=== PATIENT | female | born 1985 | race Caucasian/White ===

== ENCOUNTER 2018-11-08 15:17 | Emergency (ER) | payer OTHER ==
[~2018-11-08] VITALS: Ht 157.5 cm; Wt 90.7 kg
[2018-11-08 15:29] VITALS: BP 113/70
--- NOTE | 2018-11-08 16:02 | NUR ---
33 Y/O FEMALE C/O PALPITATIONS AND DIZZINESS X 1 DAY. PT STATES SHE GETS DIZZY BUT THEN SITS DOWN AND THAT HELPS RELIEVE IT. DENIES MEDICATION USE. HX: DENIES RX: DENIES
[2018-11-08 17:12] VITALS: BP 110/59
--- NOTE | 2018-11-08 17:12 | NUR ---
Patient discharged with v/s stable. Written and verbal after care instructions given and explained. Patient verbalized understanding. Ambulatory with steady gait. All questions addressed prior to discharge. Advised to follow up with PMD.
== END 2018-11-08 17:12 | disposition home or self-care (01) ==
LOC: MED 15:17
DX: R00.2 Palpitations (principal); R42 Dizziness and giddiness; Z88.0 Allergy status to penicillin
CPT/HCPCS: 81002; 81025; 93005; 99283

== ENCOUNTER 2021-06-28 14:45 | Emergency (ER) | payer OTHER ==
[~2021-06-28] VITALS: Ht 157.5 cm; Wt 79.4 kg
[2021-06-28 14:49] VITALS: BP 135/80
--- NOTE | 2021-06-28 15:07 | NUR ---
35 Y/O FEMALE C/O CHEST PAIN XTODAY. STATES SHARP SUDDEN CHEST PAIN RADIATING TO BACK AFTER 1 EPISODE OF NAUSEA AND VOMITING. 10/09 PAIN IN TRIAGE, NOW 08/09. TOOK IBUPROFEN WITH SOME RELIEF. NO C/O OF N/V AT THIS TIME. MEDHX: DENIES ALLERGIES: PENICILLIN
--- NOTE | 2021-06-28 15:32 | NUR ---
DR CONN AT BEDSIDE FOR MSE
--- NOTE | 2021-06-28 15:43 | NUR ---
PT TAKEN TO XR BY XR TECH VIA WC
--- NOTE | 2021-06-28 15:51 | NUR ---
PT BACK TO ROOM FROM XRAY
[2021-06-28] MEDS ORDERED: ONDA-188 SL (18:26)
[2021-06-28 18:50] VITALS: BP 107/61
--- NOTE | 2021-06-28 18:52 | NUR ---
Patient discharged with v/s stable. Written and verbal after care instructions given and explained. Patient alert, oriented and verbalized understanding of instructions. Ambulatory with steady gait. All questions addressed prior to discharge. ID band removed. Patient advised to follow up with PMD. Rx of zofrazn given. Patient educated on indication of medication including possible reaction and side effects. Opportunity to ask questions provided and answered.
== END 2021-06-28 18:50 | disposition home or self-care (01) ==
LOC: MED 14:45
DX: R07.89 Other chest pain (principal); R11.2 Nausea with vomiting, unspecified; Z79.899 Other long term (current) drug therapy; Z98.890 Other specified postprocedural states; Z88.0 Allergy status to penicillin
CPT/HCPCS: 71046; 81025; 93005; 99285